=== PATIENT | female | born 1940 | race Caucasian/White ===

== ENCOUNTER 2017-02-05 08:12 | Inpatient (IN) | payer MEDICARE, OTHER ==
[~2017-02-05] VITALS: Ht 160 cm; Wt 71.3 kg
[~2017-02-05 08:12] MED LIST: HYDR-2768 PO; IBUP800 PO; LASI20TA PO; LOSA25TA31 PO; METO100T9 PO; NEFA150T PO; SERT-132 PO; ZOCO40TA PO
[2017-02-05 08:26] VITALS: BP 188/86; PULSE 75; RESP 16; TEMP 98.4; O2SAT 96
[2017-02-05] MEDS ORDERED: METO1TAB43 PO (08:36)
[2017-02-05] MEDS ORDERED: IBUP1TAB7 PO (08:36)
[2017-02-05] MEDS ORDERED: SIMV40TA PO (08:36)
[2017-02-05] MEDS ORDERED: COZA25TA PO (08:36)
[2017-02-05] MEDS ORDERED: HYDR25TA5 PO (08:36)
[2017-02-05] MEDS ORDERED: NEFA150T PO (08:36)
[2017-02-05] MEDS ORDERED: SERT-132 PO (08:36)
[2017-02-05] MEDS ORDERED: SODIUM CHLORIDE 0.9% FLUSH 10 ML FLUSH IV FLUSH PRN (09:00)
[2017-02-05 09:17] LABS: AUTOMATED NEUTROPHIL # 4.8 TH/MM3 (1.8-7.7); BASOPHIL % 0.3 % (0.0-2.0); EOSINOPHIL % 0.1 % (0.0-4.0); HEMATOCRIT 41.8 % (35.0-46.0); HEMOGLOBIN 14.4 GM/DL (11.6-15.3); LYMPH % 28.1 % (9.0-44.0); LYMPHOCYTE # 2.1 TH/MM3 (1.0-4.8); MEAN CELL VOLUME 90.6 FL (80.0-100.0); MEAN CORPUSCULAR HEMOGLOBIN 31.3 PG (27.0-34.0); MEAN CORPUSCULAR HGB CONC 34.6 % (32.0-36.0); MEAN PLATELET VOLUME 9.7 FL (7.0-11.0); MONO % 6.8 % (0.0-8.0); MONOCYTE # 0.5 TH/MM3 (0-0.9); NEUT % 64.7 % (16.0-70.0); PLATELET COUNT 148 TH/MM3 (150-450); RED BLOOD COUNT 4.61 MIL/MM3 (4.00-5.30); RED CELL DISTRIBUTION WIDTH 15.4 % (11.6-17.2); WHITE BLOOD COUNT 7.4 TH/MM3 (4.0-11.0)
[2017-02-05 09:27] LABS: PROTHROMBIN TIME - PATIENT 10.8 SEC (9.8-11.6)
[2017-02-05 09:28] LABS: INTERNATIONAL NORMALIZED RATIO 1.1 RATIO
[2017-02-05] MEDS ORDERED: MONT10TA4 PO (09:29)
[2017-02-05] MEDS ORDERED: DONE10TA7 PO (09:29)
[2017-02-05 09:37] LABS: ALBUMIN 4.4 GM/DL (3.4-5.0); AST (GOT) 39 U/L (15-37); BICARBONATE 23.9 MEQ/L (21.0-32.0); BLOOD UREA NITROGEN 19 MG/DL (7-18); CHLORIDE 98 MEQ/L (98-107); GLOMERULAR FILTRATION RATE 54 ML/MIN (>89); GLUCOSE,RANDOM 148 MG/DL (74-106); SODIUM (NA) 133 MEQ/L (136-145)
[2017-02-05 09:38] LABS: ALT (GPT) 40 U/L (10-53)
[2017-02-05 09:48] LABS: ALKALINE PHOSPHATASE 54 U/L (45-117); TOTAL BILIRUBIN ADULT 0.6 MG/DL (0.2-1.0); TOTAL PROTEIN 7.9 GM/DL (6.4-8.2); TROPONIN I 0.04 NG/ML (0.02-0.05)
[2017-02-05 10:38] VITALS: BP 187/93; PULSE 85; RESP 16; O2SAT 98
[2017-02-05 10:48] LABS: BILIRUBIN, URINE NEG (NEG); BLOOD, URINE NEG (NEG); GLUCOSE,URINE NEG (NEG); HYALINE CAST, URINE 3 /lpf (RARE); KETONE, URINE 10 mg/dL (NEG); MUCUS URINE FEW /lpf (OCC); NITRITE,URINE NEG (NEG); URINE COLOR YELLOW (YELLW/STRAW); URINE LEUKOCYTE ESTERASE NEG (NEG)
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
[2017-02-05] MEDS ORDERED: ALPRAZolam 1 MG TAB PO ONE (12:00)
[2017-02-05] MEDS ORDERED: diphenhydrAMINE HCL 50 MG CAP PO PRN (14:45)
[2017-02-05] MEDS ORDERED: LORazepam 1 MG TAB PO PRN (14:45)
[2017-02-05] MEDS ORDERED: ACETAMINOPHEN 325 MG TAB PO PRN (14:45)
[2017-02-05] MEDS ORDERED: LORazepam 2 MG/ML VIAL IM PRN (14:45)
[2017-02-05] MEDS ORDERED: diphenhydrAMINE HCL 50 MG/ML VIAL IM PRN (14:45)
[2017-02-05] MEDS ORDERED: ALUMINUM/MAGNESIUM/SIMETH 30 ML CUP PO PRN (14:45)
[2017-02-05] MEDS ORDERED: MAGNESIUM HYDROXIDE SUSP 30 ML CUP PO PRN (14:45)
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
[2017-02-05 16:31] VITALS: BP 156/92; PULSE 98; RESP 18; O2SAT 97
[2017-02-05 17:41] VITALS: BP 156/76; PULSE 71; TEMP 97.4; O2SAT 97
[2017-02-05] MEDS ORDERED: OLANZapine IM 10 MG VIAL IM STA (17:51)
[2017-02-05] MEDS ORDERED: POTASSIUM CHLORIDE 20 MEQ CONTROLLED RELEASE TAB PO ONE (18:00)
[2017-02-05] MEDS ORDERED: POTASSIUM CHLORIDE 10 MEQ CONTROLLED RELEASE TAB PO ONE (18:00)
[2017-02-05] MEDS ORDERED: OLANZapine IM 10 MG VIAL IM ONE (18:13)
[2017-02-05] MEDS: PRAVASTATIN SOD 40 MG TAB PO SCH (22:19)
[2017-02-05] MEDS: DONEPEZIL HCL 5 MG TAB PO SCH (22:19)
[2017-02-05] MEDS: IBUPROFEN 800 MG TAB PO SCH (22:19)
[2017-02-05] MEDS: MONTELUKAST SODIUM 10 MG TAB PO SCH (22:20)
[2017-02-06 06:00] VITALS: BP 105/53; PULSE 60; RESP 16; TEMP 98.1; O2SAT 96
[2017-02-06 08:37] LABS: AUTOMATED NEUTROPHIL # 1.8 TH/MM3 (1.8-7.7); BASOPHIL % 0.6 % (0.0-2.0); EOSINOPHIL # 0.1 TH/MM3 (0-0.4); EOSINOPHIL % 1.7 % (0.0-4.0); HEMATOCRIT 42.1 % (35.0-46.0); HEMOGLOBIN 14.5 GM/DL (11.6-15.3); LYMPH % 52.9 % (9.0-44.0); LYMPHOCYTE # 2.6 TH/MM3 (1.0-4.8); MEAN CELL VOLUME 90.6 FL (80.0-100.0); MEAN CORPUSCULAR HEMOGLOBIN 31.3 PG (27.0-34.0); MEAN CORPUSCULAR HGB CONC 34.6 % (32.0-36.0); MONO % 8.4 % (0.0-8.0); MONOCYTE # 0.4 TH/MM3 (0-0.9); NEUT % 36.4 % (16.0-70.0); PLATELET COUNT 132 TH/MM3 (150-450); RED BLOOD COUNT 4.64 MIL/MM3 (4.00-5.30); RED CELL DISTRIBUTION WIDTH 15.3 % (11.6-17.2); WHITE BLOOD COUNT 4.8 TH/MM3 (4.0-11.0)
[2017-02-06] MEDS: HYDROCHLOROTHIAZIDE 25 MG TAB PO SCH ×2 (09:00→09:52)
[2017-02-06] MEDS: IBUPROFEN 800 MG TAB PO SCH ×3 (09:00→17:44)
[2017-02-06] MEDS: METOPROLOL SUCCINATE 50 MG EXTENDED RELEASE TAB PO SCH ×2 (09:00→09:52)
[2017-02-06] MEDS: LOSARTAN 25 MG TAB PO SCH ×2 (09:00→09:51)
[2017-02-06 09:05] LABS: ALBUMIN 3.9 GM/DL (3.4-5.0); AST (GOT) 40 U/L (15-37); BICARBONATE 27.3 MEQ/L (21.0-32.0); BLOOD UREA NITROGEN 12 MG/DL (7-18); CALCIUM 9.2 MG/DL (8.5-10.1); CHLORIDE 105 MEQ/L (98-107); CREATININE 0.72 MG/DL (0.50-1.00); GLOMERULAR FILTRATION RATE 79 ML/MIN (>89); GLUCOSE,RANDOM 87 MG/DL (74-106); MAGNESIUM 2.3 MG/DL (1.5-2.5); SODIUM (NA) 137 MEQ/L (136-145)
[2017-02-06 09:06] LABS: ALT (GPT) 38 U/L (10-53); CHOLESTEROL 135 MG/DL (120-200); TRIGLYCERIDES 135 MG/DL (42-150)
[2017-02-06] MEDS ORDERED: hydrOXYzine HCL 50 MG TAB PO PRN (09:15)
[2017-02-06 09:31] LABS: ALKALINE PHOSPHATASE 50 U/L (45-117); CHOLESTEROL/ HDL RATIO 1.79 RATIO; HDL CHOLESTEROL 75.4 MG/DL (40.0-60.0); LDL CHOLESTEROL 33 MG/DL (0-99); TOTAL BILIRUBIN ADULT 0.5 MG/DL (0.2-1.0); TOTAL PROTEIN 7.2 GM/DL (6.4-8.2)
--- NOTE | 2017-02-06 09:35 | HHI.PYPN ---
Subjective Remarks Patient initially seen by Dr. Stuart Lemon who did the initial psychiatric evaluation. That document reviewed and agreed with. I have finished the initial psychiatric admissions template order. Patient seen by me with nurse Crabtree in her room. She is alert oriented overall calm the acknowledges being bipolar, acknowledges having a lack of sleep for at least 4 or 5 days prior to this admission, she acknowledges manic behavior of racing thoughts pressured speech and increased paranoia references towards her . She does state some type of brief psychiatric contact a few years ago through [facility] act. The stated she might be bipolar. It appears medication was recommended though lives question if she ever started it. She has been on antidepressants. Though she is somewhat vague and confusing about initiated that treatment. She is her second for about the past 5 years they have homes here locally and in [place]. Patient denies any prior psychiatric hospitalizations. She denies any suicidality homicidality voices or visions. That appear she is medicine delusional type statements about seeing a "light" and often number "3". There is some justification referring to the Figgu lites, she is also shinto and referring to the [employer]. She states she has had difficulty with alcohol 30+ years ago but none now denies any other drug use. She denies any physical or sexual abuse. She has a college degree from [employer]. And she has talked in the past. Patient does have some insight into her illness at the present time is willing to place the medication. Of interest patient does have a twin sister who is diagnosed as bipolar also with Alzheimer's disease. It appears that sister had in the past been on lithium until there were secondary problems related to it. We will start patient on Seroquel 25 mg 8 AM 2 PM and 10 PM. Will have a counselor attempt to reach patient's perhaps arrange for meeting tomorrow morning at this time I do feel patient meets criteria for involuntary psychiatric hospitalization thus I will do first opinion petition supporting [facility] act. Request second opinion. I do feel she has capacity sign for medication Review of Systems Constitutional: DENIES: Diaphoretic episodes, Fatigue, Fever, Weight gain, Weight loss, Chills, Dizziness, Change in appetite, Night Sweats Endocrine: DENIES: Abnorml menstrual pattern, Heat/cold intolerance, Polydipsia , Polyuria, Polyphagia Eyes: DENIES: Blurred vision, Diplopia, Eye inflammation, Eye pain, Vision loss , Photosensitivity, Double Vision Ears, nose, mouth, throat: DENIES: Tinnitus, Hearing loss, Vertigo, Nasal discharge, Oral lesions, Throat pain, Hoarseness, Ear Pain, Running Nose, Epistaxis, Sinus Pain, Toothache, Odynophagia Respiratory: DENIES: Apneas, Cough, Snoring, Wheezing, Hemoptysis, Sputum production, Shortness of breath Cardiovascular: DENIES: Chest pain, Palpitations, Syncope, Dyspnea on Exertion , PND, Lower Extremity Edema, Orthopnea, Claudication Gastrointestinal: DENIES: Abdominal pain, Black stools, Bloody stools, Constipation, Diarrhea, Nausea, Vomiting, Difficulty Swallowing, Anorexia Genitourinary: DENIES: Abnormal vaginal bleeding, Dysmenorrhea, Dyspareunia, Sexual dysfunction, Urinary frequency, Urinary incontinence, Urgency, Hematuria , Dysuria, Nocturia, Vaginal discharge Musculoskeletal: DENIES: Joint pain, Muscle aches, Stiffness, Joint Swelling, Back pain, Neck pain Integumentary: DENIES: Abnormal pigmentation, Pruritus, Rash, Nail changes, Breast masses, Breast skin changes, Nipple discharge Hematologic/lymphatic: DENIES: Bruising, Lymphadenopathy Immunologic/allergic: DENIES: Eczema, Urticaria Neurologic: DENIES: Abnormal gait, Headache, Localized weakness, Paresthesias, Seizures, Speech Problems, Tremor, Poor Balance Psychiatric: COMPLAINS OF: Mood changes, Hallucinations (vague), Delusions ( vague) Mental Status Examination Appearance: Appropriate Consciousness: Alert Orientation: x4 Motor Activity: Normal gait Speech: Rapid Language: Perseveration Fund of Knowledge: Adequate Attention and Concentration: Other (fair) Memory: Impaired Mood: Irritable (mild), Manic (mild) Affect: Other (slight increased range and intensity) Thought Process & Associations: Loose associations, Circumstantial, Disorganized, Tangential Thought Content: Bizarre thinking, Ideas of reference, Racing thoughts, Preoccupations, Delusional Hallucination Type: None Delusion Type: Bizarre, Paranoid Suicidal Ideation: No Suicidal Plan: No Suicidal Intention: No Homicidal Ideation: No Homicidal Plan: No Homicidal Intention: No Insight: Poor Judgment: Poor Results Labs Test 02/05/17 10:35 02/06/17 07:40 Urine Color YELLOW Urine Turbidity CLEAR Urine pH 6.0 Urine Specific Ambler 1.010 Urine Protein NEG mg/dL Urine Glucose (UA) NEG mg/dL Urine Ketones 10 mg/dL Urine Occult Blood NEG Urine Nitrite NEG Urine Bilirubin NEG Urine Urobilinogen LESS THAN 2.0 MG/DL Urine Leukocyte Esterase NEG Urine RBC 1 /hpf Urine WBC LESS THAN 1 /hpf Urine Hyaline Casts 3 /lpf Urine Mucus FEW /lpf Microscopic Urinalysis Comment CATH-CULT NOT IND White Blood Count 4.8 TH/MM3 Red Blood Count 4.64 MIL/MM3 Hemoglobin 14.5 GM/DL Hematocrit 42.1 % Mean Corpuscular Volume 90.6 FL Mean Corpuscular Hemoglobin 31.3 PG Mean Corpuscular Hemoglobin Concent 34.6 % Red Cell Distribution Width 15.3 % Platelet Count 132 TH/MM3 Mean Platelet Volume 9.0 FL Neutrophils (%) (Auto) 36.4 % Lymphocytes (%) (Auto) 52.9 % Monocytes (%) (Auto) 8.4 % Eosinophils (%) (Auto) 1.7 % Basophils (%) (Auto) 0.6 % Neutrophils # (Auto) 1.8 TH/MM3 Lymphocytes # (Auto) 2.6 TH/MM3 Monocytes # (Auto) 0.4 TH/MM3 Eosinophils # (Auto) 0.1 TH/MM3 Basophils # (Auto) 0.0 TH/MM3 CBC Comment AUTO DIFF Blood Urea Nitrogen 12 MG/DL Creatinine 0.72 MG/DL Random Glucose 87 MG/DL Albumin 3.9 GM/DL Calcium Level 9.2 MG/DL Magnesium Level 2.3 MG/DL Aspartate Amino Transf (AST/SGOT) 40 U/L Alanine Aminotransferase (ALT/SGPT) 38 U/L Sodium Level 137 MEQ/L Potassium Level 3.8 MEQ/L Chloride Level 105 MEQ/L Carbon Dioxide Level 27.3 MEQ/L Anion Gap 5 MEQ/L Estimat Glomerular Filtration Rate 79 ML/MIN Triglycerides Level 135 MG/DL Cholesterol Level 135 MG/DL Vitals/IOs Vital Signs Date Time Temp Pulse Resp B/P (MAP) Pulse Ox O2 Delivery O2 Flow Rate FiO2 02/06/17 06:00 98.1 60 16 105/53 (70) 96 02/05/17 16:31 Room Air Intake and Output 02/06/17 02/06/17 02/06/17 07:59 15:59 23:59 Intake Total 240 ml Balance 240 ml Assessment & Plan Problem List: (1) Bipolar disorder, current episode mixed, severe, with psychotic features ICD Codes: F31.64 - Bipolar disorder, current episode mixed, severe, with psychotic features Assessment & Plan Estimated LOS: days patient continues somewhat delusional and manic though it appears she had a good night sleep last night and she is somewhat calmer today than her presentation on admission. We'll start medication as mentioned above attempt to arrange a meeting with patient's family for tomorrow morning Justification for Cont. Inpt. This time patient will decompensate placed in a lower level of care Discharge Planning Probable return home with family Request HC Surrog/Guard Advoc?: No Hema Chun MD Feb 06, 2017 09:35
[2017-02-06 09:45] VITALS: BP 124/84; PULSE 70
[2017-02-06] MEDS: QUEtiapine FUMARATE 25 MG TAB PO SCH ×2 (13:19→21:49)
--- NOTE | 2017-02-06 13:35 | EKG ---
Date Performed: 02/06/2017 Time Performed: 11:17:02 PTAGE: 76 years EKG: SINUS BRADYCARDIA MARKED LEFT AXIS DEVIATION ANTEROSEPTAL MYOCARDIAL INFARCTION , OF INDETE RMINATE AGE ABNORMAL ECG NO PREVIOUS TRACING DOCTOR: Rony Parker Interpretating Date/Time 02/06/2017 13:34:40
--- NOTE | 2017-02-06 13:40 | PD.CONS ---
HPI Service [facility] Hospitalists Consult Requested By Dr Cook Reason for Consult medical management Primary Care Physician Unknown Diagnoses: History of Present Illness Very pleasant 76 yo F with PMH of HTN; HLD, dementia admitted to inpatient psych unit for further eval and treatment. The hospitalist is consulted for management fo medical problems. The patient appears distress at this time. She denies any headaches, S/P,. Nausea, vomiting, diarrhea or constipation. She feels good. She is able to ambulate. She is eating well appetite is good. Review of Systems Except as stated in HPI: all other systems reviewed are Neg Past Family Social History Allergies: Coded Allergies: zolpidem (Verified Allergy, Severe, overdose, 02/05/17) iodine (Unverified Allergy, Intermediate, itchy skin, 02/05/17) potassium iodide (Unverified Allergy, Intermediate, itchy skin, 02/05/17) povidone-iodine (Unverified Allergy, Intermediate, itchy skin, 02/05/17) sodium iodide (Unverified Allergy, Intermediate, itchy skin, 02/05/17) sodium iodide (Unverified Allergy, Intermediate, itchy skin, 02/05/17) Past Medical History HTN, HLD, dementia Past Surgical History None Reported Medications Reported Meds & Active Scripts Active Reported Montelukast (Montelukast Sodium) 10 Mg Tab 10 Mg PO HS Donepezil 10 Mg Tab 10 Mg PO HS Simvastatin 40 Mg Tab 20 Mg PO HS Sertraline (Sertraline HCl) 50 Mg Tab 50 Mg PO DAILY Nefazodone (Nefazodone HCl) 150 Mg Tab 150 Mg PO DAILY Metoprolol Succinate ER 24 HR (Metoprolol Succinate) 100 Mg Tab 100 Mg PO DAILY Cozaar (Losartan Potassium) 25 Mg Tab 25 Mg PO DAILY Ibuprofen 800 Mg Tab 800 Mg PO TID Hydrochlorothiazide 25 Mg Tab 25 Mg PO DAILY Family History healthy Social History No etoh use, tobacco use or illicit drug use Physical Exam Vital Signs Vital Signs Date Time Temp Pulse Resp B/P (MAP) Pulse Ox O2 Delivery O2 Flow Rate FiO2 02/06/17 09:45 70 124/84 (97) 02/06/17 06:00 98.1 60 16 105/53 (70) 96 02/05/17 17:41 97.4 71 156/76 (102) 97 02/05/17 16:55 02/05/17 16:31 98 18 156/92 (113 97 Room Air Physical Exam GENERAL: This is a very pleasant 76 yo female, well-nourished, well-developed patient, in no apparent distress. SKIN: No rashes, ecchymoses or lesions. Cool and dry. HEAD: Atraumatic. Normocephalic. No temporal or scalp tenderness. EYES: Pupils equal round and reactive. Extraocular motions intact. No scleral icterus. No injection or drainage. ENT: Nose without bleeding, purulent drainage or septal hematoma. Throat without erythema, tonsillar hypertrophy or exudate. Uvula midline. Airway patent. NECK: Trachea midline. No JVD or lymphadenopathy. Supple, nontender, no meningeal signs. CARDIOVASCULAR: Regular rate and rhythm without murmurs, gallops, or rubs. RESPIRATORY: Clear to auscultation. Breath sounds equal bilaterally. No wheezes , rales, or rhonchi. GASTROINTESTINAL: Abdomen soft, non-tender, nondistended. No hepato-splenomegaly , or palpable masses. No guarding. MUSCULOSKELETAL: Extremities without clubbing, cyanosis, or edema. No joint tenderness, effusion, or edema noted. No calf tenderness. Negative Homans sign bilaterally. NEUROLOGICAL: Awake and alert. Cranial nerves II through XII intact. Motor and sensory grossly within normal limits. Five out of 5 muscle strength in all muscle groups. Normal speech. Laboratory Laboratory Tests Test 02/06/17 07:40 White Blood Count 4.8 Red Blood Count 4.64 Hemoglobin 14.5 Hematocrit 42.1 Mean Corpuscular Volume 90.6 Mean Corpuscular Hemoglobin 31.3 Mean Corpuscular Hemoglobin Concent 34.6 Red Cell Distribution Width 15.3 Platelet Count 132 Mean Platelet Volume 9.0 Neutrophils (%) (Auto) 36.4 Lymphocytes (%) (Auto) 52.9 Monocytes (%) (Auto) 8.4 Eosinophils (%) (Auto) 1.7 Basophils (%) (Auto) 0.6 Neutrophils # (Auto) 1.8 Lymphocytes # (Auto) 2.6 Monocytes # (Auto) 0.4 Eosinophils # (Auto) 0.1 Basophils # (Auto) 0.0 CBC Comment AUTO DIFF Differential Comment AUTO DIFF CONFIRMED Blood Urea Nitrogen 12 Creatinine 0.72 Random Glucose 87 Total Protein 7.2 Albumin 3.9 Calcium Level 9.2 Magnesium Level 2.3 Alkaline Phosphatase 50 Aspartate Amino Transf (AST/SGOT) 40 Alanine Aminotransferase (ALT/SGPT) 38 Total Bilirubin 0.5 Sodium Level 137 Potassium Level 3.8 Chloride Level 105 Carbon Dioxide Level 27.3 Anion Gap 5 Estimat Glomerular Filtration Rate 79 Triglycerides Level 135 Cholesterol Level 135 LDL Cholesterol 33 HDL Cholesterol 75.4 Cholesterol/HDL Ratio 1.79 Vitamin B12 Level 451 25-Hydroxy Vitamin D Total 36.4 Result Diagram: 02/06/17 0740 02/06/1740 Assessment and Plan Assessment and Plan Bipolar disorder - management per psychiatry Hypertension continue home medications. Monitor blood pressure and adjust medications as needed. Blood pressure appears stable at this time. Hyperlipidemia Continue home medications. DVT prophylaxis with ambulation Thank you for this consultation. The patient appears stable. Discussed Condition With The patient, nurse Arcelia Sainz MD Feb 06, 2017 13:39
[2017-02-06 14:23] LABS: HEMOGLOBIN A1C 5.1 % (4.3-6.0)
[2017-02-06 18:00] VITALS: BP 124/59; PULSE 69; RESP 18; TEMP 97.1; O2SAT 97
[2017-02-06 20:05] VITALS: BP 124/59; PULSE 69; RESP 18; TEMP 97.1; O2SAT 97
[2017-02-06] MEDS ORDERED: diphenhydrAMINE HCL 50 MG CAP PO PRN (21:00)
[2017-02-06] MEDS: MONTELUKAST SODIUM 10 MG TAB PO SCH (21:48)
[2017-02-06] MEDS: DONEPEZIL HCL 5 MG TAB PO SCH (21:49)
[2017-02-06] MEDS: PRAVASTATIN SOD 40 MG TAB PO SCH (21:49)
[2017-02-07 06:11] VITALS: BP 135/84; PULSE 66; RESP 16; TEMP 97.4
[2017-02-07] MEDS: QUEtiapine FUMARATE 25 MG TAB PO SCH ×3 (08:20→20:45)
[2017-02-07] MEDS: IBUPROFEN 800 MG TAB PO SCH ×3 (08:21→17:58)
[2017-02-07] MEDS: HYDROCHLOROTHIAZIDE 25 MG TAB PO SCH (10:18)
[2017-02-07] MEDS: LOSARTAN 25 MG TAB PO SCH (10:18)
[2017-02-07] MEDS: METOPROLOL SUCCINATE 50 MG EXTENDED RELEASE TAB PO SCH (10:19)
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
--- NOTE | 2017-02-07 13:56 | HHI.PYPN ---
Subjective Remarks Patient seen in day room with nurse Crabtree, chart review, patient compliant medication. Patient states she slept well last night, though has not talked her family. She is vague about where she wishes to go when she is discharged. The serosa minimizing focused towards her . She does denies suicidality and voices at the present time. Now continue treatment Review of Systems Except as stated in HPI: all other systems reviewed are Neg Mental Status Examination Appearance: Appropriate Consciousness: Alert Orientation: x4 Motor Activity: Normal gait Speech: Pressured Language: Perseveration Fund of Knowledge: Adequate Attention and Concentration: Other (fair) Memory: Impaired Mood: Irritable (mild), Manic (mild) Affect: Other (slight increased range and intensity) Thought Process & Associations: Loose associations, Circumstantial, Disorganized, Tangential Thought Content: Bizarre thinking, Ideas of reference, Racing thoughts, Preoccupations, Delusional Hallucination Type: None Delusion Type: Bizarre, Paranoid Suicidal Ideation: No Suicidal Plan: No Suicidal Intention: No Homicidal Ideation: No Homicidal Plan: No Homicidal Intention: No Insight: Poor Judgment: Poor Results Vitals/IOs Vital Signs Date Time Temp Pulse Resp B/P (MAP) Pulse Ox O2 Delivery O2 Flow Rate FiO2 02/07/17 06:11 97.4 66 16 135/84 (101) 02/06/17 20:05 97 02/05/17 16:31 Room Air Intake and Output 02/07/17 02/07/17 02/08/17 08:00 16:00 00:00 Intake Total 0 ml 480 ml Balance 0 ml 480 ml Assessment & Plan Problem List: (1) Bipolar disorder, current episode mixed, severe, with psychotic features ICD Codes: F31.64 - Bipolar disorder, current episode mixed, severe, with psychotic features Assessment & Plan Estimated LOS: days patient remains somewhat manic and paranoid. Has been compliant with medications though is only had one dose of Seroquel so far. For now continue treatment Justification for Cont. Inpt. At this time patient will decompensate placed in a lower level of care Discharge Planning Possible return to either family home or staying with one of her children Request HC Surrog/Guard Advoc?: No Hema Chun MD Feb 07, 2017 13:56
[2017-02-07 18:11] VITALS: BP 130/80; PULSE 70; RESP 18; TEMP 98.6; O2SAT 99
[2017-02-07 18:12] VITALS: BP 130/80; PULSE 70; RESP 18; TEMP 98.6; O2SAT 99
[2017-02-07] MEDS: PRAVASTATIN SOD 40 MG TAB PO SCH (20:45)
[2017-02-07] MEDS: DONEPEZIL HCL 5 MG TAB PO SCH (20:45)
[2017-02-07] MEDS: MONTELUKAST SODIUM 10 MG TAB PO SCH (20:45)
[2017-02-08 05:00] VITALS: BP 162/77; PULSE 54; RESP 18; TEMP 97.6; O2SAT 100
[2017-02-08] MEDS: QUEtiapine FUMARATE 25 MG TAB PO SCH ×3 (08:00→20:58)
[2017-02-08] MEDS: LOSARTAN 25 MG TAB PO SCH (09:00)
[2017-02-08] MEDS: METOPROLOL SUCCINATE 50 MG EXTENDED RELEASE TAB PO SCH (09:00)
[2017-02-08] MEDS: HYDROCHLOROTHIAZIDE 25 MG TAB PO SCH (09:00)
[2017-02-08] MEDS: IBUPROFEN 800 MG TAB PO SCH ×3 (09:00→18:00)
--- NOTE | 2017-02-08 16:43 | HHI.PYPN ---
Subjective Remarks Patient was seen and case discussed with nursing. Patient remains manic. She is elevated, hyper-energetic and quite disorganized. Thought processes tangential. She cannot give me a coherent story about why she was admitted. Nursing has not noted any hypersexual or paranoid behavior. She is perseverative on "outfoxing" but could not tell me why. Mental Status Examination Appearance: Appropriate Consciousness: Alert Orientation: x4 Motor Activity: Normal gait Speech: Pressured Language: Perseveration Fund of Knowledge: Adequate Attention and Concentration: Other (fair) Memory: Impaired Mood: Irritable (mild), Manic (mild) Affect: Other (slight increased range and intensity) Thought Process & Associations: Tangential Thought Content: Bizarre thinking, Ideas of reference, Racing thoughts, Preoccupations, Delusional Hallucination Type: None Delusion Type: Bizarre, Paranoid Suicidal Ideation: No Suicidal Plan: No Suicidal Intention: No Homicidal Ideation: No Homicidal Plan: No Homicidal Intention: No Insight: Poor Judgment: Poor Results Vitals/IOs Vital Signs Date Time Temp Pulse Resp B/P (MAP) Pulse Ox O2 Delivery O2 Flow Rate FiO2 02/08/17 05:00 97.6 54 18 162/77 (105) 100 02/05/17 16:31 Room Air Assessment & Plan Problem List: (1) Bipolar disorder, current episode mixed, severe, with psychotic features ICD Codes: F31.64 - Bipolar disorder, current episode mixed, severe, with psychotic features Assessment & Plan Continue current treatment plan Justification for Cont. Inpt. Patient will decompensate in a less restrictive setting Request HC Surrog/Guard Advoc?: No Brown Chappell DO Feb 08, 2017 16:43
[2017-02-08 18:19] VITALS: BP 120/66; PULSE 63; RESP 18; TEMP 97.3; O2SAT 99
[2017-02-08] MEDS: MONTELUKAST SODIUM 10 MG TAB PO SCH (20:57)
[2017-02-08] MEDS: PRAVASTATIN SOD 40 MG TAB PO SCH (20:57)
[2017-02-08] MEDS: DONEPEZIL HCL 5 MG TAB PO SCH (20:57)
[2017-02-09 06:16] VITALS: BP 138/70; PULSE 60; RESP 18; TEMP 97.7; O2SAT 98
[2017-02-09] MEDS: QUEtiapine FUMARATE 25 MG TAB PO SCH ×3 (08:51→20:30)
[2017-02-09] MEDS: HYDROCHLOROTHIAZIDE 25 MG TAB PO SCH (08:51)
[2017-02-09] MEDS: LOSARTAN 25 MG TAB PO SCH (08:51)
[2017-02-09] MEDS: METOPROLOL SUCCINATE 50 MG EXTENDED RELEASE TAB PO SCH (08:51)
[2017-02-09] MEDS: IBUPROFEN 800 MG TAB PO SCH ×3 (08:52→17:42)
--- NOTE | 2017-02-09 10:11 | HHI.PR ---
Subjective Remarks Follow up bipolar disorder, HTN, hyperlipidemia. Patient seen and examined, sitting in chair in day room coloring. Patient alert and oriented. Appears to be in touch with reality. Denies any distress at this time. Denies any acute complaints. Eating well, denies any nausea or vomiting. Denies any pain. Eager to get home to spend time with family during the holiday. Will defer to psychiatry for dc. At this time patient is medically stable and will sign off. Objective Vitals Vital Signs Date Time Temp Pulse Resp B/P (MAP) Pulse Ox O2 Delivery O2 Flow Rate FiO2 02/09/17 06:16 97.7 60 18 138/70 (92) 98 02/09/17 06:01 20 02/08/17 18:19 97.3 63 18 120/66 (84) 99 I/O 02/08/17 02/08/17 02/08/17 02/09/17 02/09/17 02/09/17 07:00 15:00 23:00 07:00 15:00 23:00 Intake Total 360 ml Balance 360 ml Intake Oral 360 ml # Voids 2 2 Result Diagram: 02/06/1773902/06/1740 Objective Remarks GENERAL: This is a very pleasant 76 yo female, well-nourished, well-developed patient, in no apparent distress. SKIN: No rashes, ecchymoses or lesions. Cool and dry. HEAD: Atraumatic. Normocephalic. No temporal or scalp tenderness. EYES: Pupils equal round and reactive. Extraocular motions intact. No scleral icterus. No injection or drainage. ENT: Nose without bleeding, purulent drainage or septal hematoma. Throat without erythema, tonsillar hypertrophy or exudate. Uvula midline. Airway patent. NECK: Trachea midline. No JVD or lymphadenopathy. Supple, nontender, no meningeal signs. CARDIOVASCULAR: Regular rate and rhythm without murmurs, gallops, or rubs. RESPIRATORY: Clear to auscultation. Breath sounds equal bilaterally. No wheezes , rales, or rhonchi. GASTROINTESTINAL: Abdomen soft, non-tender, nondistended. No guarding. MUSCULOSKELETAL: Extremities without clubbing, cyanosis, or edema. No joint tenderness, effusion, or edema noted. NEUROLOGICAL: Awake and alert. Cranial nerves II through XII intact. Motor and sensory grossly within normal limits. Five out of 5 muscle strength in all muscle groups. Normal speech. A/P Assessment and Plan Bipolar disorder - Management per psychiatry Hypertension - Continue home medications. Monitor blood pressure and adjust medications as needed. Blood pressure appears stable at this time. Hyperlipidemia - Continue home medications. DVT prophylaxis: Ambulation Patient is stable at this time. Will sign off. Reconsult if needed. Tara Ruiz Feb 09, 2017 10:11
--- NOTE | 2017-02-09 13:59 | HHI.PYPN ---
Subjective Remarks Patient was seen and case discussed with nursing. Patient is initially pleasant but then becomes quite irritable when we questioning her mental status. She describes saving pieces of the butter from lunch to present to her today as a Logan gift. She wrote a poem to him which is generally cohesive and logical. Mental Status Examination Appearance: Appropriate Consciousness: Alert Orientation: x4 Motor Activity: Normal gait Speech: Pressured Language: Perseveration Fund of Knowledge: Adequate Attention and Concentration: Other (fair) Memory: Impaired Mood: Irritable (mild), Manic (mild) Affect: Other (slight increased range and intensity) Thought Process & Associations: Tangential Thought Content: Bizarre thinking, Ideas of reference, Racing thoughts, Preoccupations, Delusional Hallucination Type: None Delusion Type: Bizarre, Paranoid Suicidal Ideation: No Suicidal Plan: No Suicidal Intention: No Homicidal Ideation: No Homicidal Plan: No Homicidal Intention: No Insight: Poor Judgment: Poor Results Vitals/IOs Vital Signs Date Time Temp Pulse Resp B/P (MAP) Pulse Ox O2 Delivery O2 Flow Rate FiO2 02/09/17 06:16 97.7 60 18 138/70 (92) 98 02/05/17 16:31 Room Air Intake and Output 02/09/17 02/09/17 02/10/17 08:00 16:00 00:00 Intake Total 360 ml Balance 360 ml Assessment & Plan Problem List: (1) Bipolar disorder, current episode mixed, severe, with psychotic features ICD Codes: F31.64 - Bipolar disorder, current episode mixed, severe, with psychotic features Assessment & Plan Continue current treatment plan Justification for Cont. Inpt. Patient would decompensate in a less restrictive setting Request HC Surrog/Guard Advoc?: No Brown Chappell DO Feb 09, 2017 13:59
[2017-02-09 18:05] VITALS: BP 153/76; PULSE 65; RESP 18; TEMP 98.6; O2SAT 95
[2017-02-09] MEDS: MONTELUKAST SODIUM 10 MG TAB PO SCH (20:31)
[2017-02-09] MEDS: DONEPEZIL HCL 5 MG TAB PO SCH (20:31)
[2017-02-09] MEDS: PRAVASTATIN SOD 40 MG TAB PO SCH (20:31)
[2017-02-10 06:50] VITALS: BP 175/84; PULSE 59; RESP 18; TEMP 98.1; O2SAT 96
[2017-02-10] MEDS: HYDROCHLOROTHIAZIDE 25 MG TAB PO SCH (08:04)
[2017-02-10] MEDS: IBUPROFEN 800 MG TAB PO SCH (08:04)
[2017-02-10] MEDS: METOPROLOL SUCCINATE 50 MG EXTENDED RELEASE TAB PO SCH (08:04)
[2017-02-10] MEDS: QUEtiapine FUMARATE 25 MG TAB PO SCH (08:04)
[2017-02-10] MEDS: LOSARTAN 25 MG TAB PO SCH (08:04)
[2017-02-10] MEDS ORDERED: METO1TAB43 PO (08:35)
[2017-02-10] MEDS ORDERED: IBUP1TAB7 PO (08:35)
[2017-02-10] MEDS ORDERED: HYDR25TA5 PO (08:35)
[2017-02-10] MEDS ORDERED: SERO25TA PO (08:35)
[2017-02-10] MEDS ORDERED: COZA25TA PO (08:35)
[2017-02-10] MEDS ORDERED: MONT10TA4 PO (08:35)
[2017-02-10] MEDS ORDERED: DONE10TA7 PO (08:35)
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
== END 2017-02-10 09:55 | disposition home or self-care (01) | DRG 885 ==
LOC: NEPE 08:12 → NEDA 14:39 → H260 16:40 → H250 22:28
PROVIDERS: ADMIT Psychiatry & Neurology Psychiatry; ATTEND Psychiatry & Neurology Psychiatry
DX: F31.64 Bipolar disorder, current episode mixed, severe, with psychotic features (principal); Z81.8 Family history of other mental and behavioral disorders; I10 Essential (primary) hypertension; E78.5 Hyperlipidemia, unspecified
CPT/HCPCS: 80053; 80061; 80307; 81001; 82306; 82607; 83036; 83735; 84443; 84484; 85025; 85610; 85730; 93005; 99285